=== PATIENT | female | born 1950 | race Caucasian/White ===

== ENCOUNTER 2023-02-05 13:47 | Outpatient (REF) | payer MEDICARE, SELFPAY ==
--- NOTE | ~2023-02-05 | XR_ITS ---
EXAMINATION: XR LUMBOSACRAL SPINE WITH OBLIQUES CLINICAL INFORMATION: Spondylolisthesis. COMPARISON: None available. TECHNIQUE: 4 views of the lumbar spine of lateral, flexion and extension views. FINDINGS: The bones are diffusely demineralized. Mild dextroscoliosis of the lumbar spine. Degenerative changes in the imaged lower thoracic spine. Facet arthritis in the lower lumbar spine. Extensive atherosclerotic aortoiliac calcifications. A 12 mm anterolisthesis of L4 on L5 persists on flexion and extension views. Multilevel lumbar spondylosis with multilevel loss of disc space height [id number] at L4-L5. Moderate loss of disc space height at L3-L4. XR/XR lumbar spine 4V min IMPRESSION: Advanced multilevel degenerative changes most notable at L4 on L5.
== END 2023-02-05 13:48 | disposition home or self-care (01) ==
LOC: HO.HOSX 13:47
PROVIDERS: PCP Internal Medicine; Visit Provider Physician Assistant
DX: M43.16 Spondylolisthesis, lumbar region (principal)
CPT/HCPCS: 72110

== ENCOUNTER 2023-02-05 13:47 | Outpatient (AMB) | payer MEDICARE, SELFPAY ==
--- NOTE | 2023-02-05 14:00 | HO.SPINEOV ---
Intake Intake Visit Reasons: low back pain/second opinion Intake Note: Ms. Moralez is here today c/o low pain and for a 2nd opin. MRI done @ [facility]/brought disc. Pill Maker Required: No Assessment & Plan Assessment & Plan (1) Spondylolisthesis, lumbar region: Code(s): M43.16 - Spondylolisthesis, lumbar region Plan Dear Dr Pichardo, Thank you for referring Mrs Moralez to our office today. This is a 72-year-old female who is status post lumbar decompression twice at the L4-5 level, the 1st time in 2015 and then subsequently in 2019. The last surgery was done by Dr. Basurto at [facility]. She describes feeling okay with on and off back pain and radicular symptoms down her left leg for a few years afterwards but sometime after an SI joint injection in October she had a significant escalation of the pain. Specifically low back pain centered around the lumbosacral junction going into both buttocks and then down her left leg into her calf. At times it can be absolutely incapacitating. She tried as mentioned cortisone injections in the past, Tylenol with arthritis, anti-inflammatories, physical therapy etc.. Nothing seems to help and at this point her quality of life is suffering significantly. When she is in a seated position she is completely fine, but when she gets to stand up and start walking she has such severe pain that she will have to sit after just a few minutes. PMH: She has remote history of a heart attack with a stent in 2010, is followed by Cardiology but has been told that the rest of her cardiac vessels are fine. She has no shortness of breath or chest pain at baseline. History of hypertension, rheumatoid arthritis, peripheral neuropathy, osteoarthritis and COPD, hip replacement on the right side and back surgery twice Social hx: Quit smoking 2010 Medications: Aspirin, duloxetine, rosuvastatin, metoprolol, losartan, Enbrel, amoxicillin, arthritis with Tylenol, hypertropia in bromide Allergies: None Physical exam: Strength and reflexes are normal. She does have lot of discomfort when standing out of a chair. Imaging review: Lumbar MRI done at [facility] in 2021 shows worsening degenerative disc disease at L4-5, compared imaging done in 2018 in 2020. She has a severe collapse of the disc at L4-5 with grade 1 spondylolisthesis with ongoing bilateral lateral recess stenosis and bilateral foraminal stenosis. She has significant facet arthropathy, left greater than right. She also has moderate stenosis at L3-4. Impression: 72-year-old female presents to the office today for evaluation of back pain and bilateral buttock pain with radicular pain down the left leg with standing walking. She has had 2 previous lumbar decompressions at L4-5, both of which did give her temporarily relief of her symptoms. She has failed conservative treatment. At this point she is developing a spondylolisthesis, facet arthropathy with persistent foraminal stenosis and bilateral lateral recess stenosis. Standing flexion-extension x-rays show transition to a grade [address] Barry I met with her to discuss L4-5 oblique lumbar interbody fusion. Because of her thin looking bones on the x-ray it would be the best approach to be able to get a bigger cage to support the vertebral bodies and realigned the spondylolisthesis. She will stop her Enbrel 2 weeks prior to surgery. Given the amount of pain she is in, she would like to proceed with surgery. We discussed the fact that she does have moderate stenosis at L3-4 and that this could present an issue down the road but at this time we do not think it symptomatic. Pt was given risk and benefits of surgery including but not limited to infection, hematoma , nerve injury,durotomy, weakness,bowel/bladder injury, persistent pain, hardware failure, possible risk of adjacent segment disease at L3-4, hardware failure as well as the option to continue with conservative treatment and patient wishes to proceed with surgery. Pt is aware they should stop their motrin, aspirin 7 days prior to surgery. All questions were answered to the best of our ability. If there is anything about this patients medical history that we have overlooked or concerns you have about us proceeding with surgery we would appreciate any input you can offer. She will get a note from her bilingual student tutor for clearance. Thank you for allowing us to care for your patient. The total time spent with this visit with this patient was 60 minutes reviewing history, physical exam, lumbar imaging review, and implementation of treatment plan or further diagnostic testing Serafin Barry MD,PhD [facility] Orders: Orders XR lumbar spine 4V min Today M43.16 - Spondylolisthesis, lumbar region Coding Level of Care Code New Pt Level 5 (25895) Diagnoses Spondylolisthesis, lumbar region M43.16
== END 2023-02-05 15:01 | disposition home or self-care (01) ==
PROVIDERS: PCP Internal Medicine; Referring Provider Physical Medicine & Rehabilitation; Visit Provider Physician Assistant
DX: M43.16 Spondylolisthesis, lumbar region (principal)
CPT/HCPCS: 99205

== ENCOUNTER → 2023-04-08 06:04 | Outpatient (BNV) | payer MEDICARE, SELFPAY | PROVIDERS: PCP Internal Medicine; Visit Provider Neurological Surgery | DX: Z48.89 Encounter for other specified surgical aftercare (principal) | CPT/HCPCS: 20930; 22558; 22612; 22840; 22853; 99024; 99499 ==

== ENCOUNTER 2023-04-08 11:34 | Inpatient (IN) | payer MEDICARE, SELFPAY ==
[2023-03-21 12:23] VITALS: BP 155/64; PULSE 70; RESP 18; O2SAT 93; BMI 30.5
--- NOTE | 2023-03-21 12:41 | HO.ANESPROP2 ---
Documented by User: Екатерина Huff NP 04/02/23 14:20 HPI - Anesthesia Eval Consult details Narrative: 72yo F for L4-5 OLIF (Oblique Lumbar Interbody Fusion), 04/08/23 Cardiac optimized No recent illness No CP. JACKSON at baseline d/t COPD CAD with MD / stent 2010 COPD. Follows pulmo for COPD. Rare productive cough for ~ 1 year. Attempted treatment by pulmo for allergy without relief. ? r/t to COVID vaccine RA. Weekly enbrel. Will hold one dose preop Facial skin sensitive to tape PMFSH Active Problems Active Problems: All Active Problems (Updated 03/21/23 @ 12:06 by Keri Alcantara, RN) Spondylolisthesis, lumbar region (Acute) Past Medical History Medical History (Updated 03/21/23 @ 12:06 by Keri Alcantara, RN) Cough Hyperlipidemia Lumbar spondylosis Back pain Overweight Emphysema of lung CAD (coronary artery disease) COPD (chronic obstructive pulmonary disease) Osteoarthritis Peripheral neuropathy Rheumatoid arthritis HTN (hypertension) Myocardial infarction Family History Family history of problems with anesthesia: No Surgical History Surgical History (Updated 03/21/23 @ 12:18 by Keri Alcantara, RN) Hx of heart artery stent History of back surgery History of right hip replacement History of Problems with Anesthesia: No (Slow to wake) Social History Social History Are you a primary geriatric care manager to a significant other at home: No Do you presently have visiting nurse or other home services: No Patient Tobacco Use Status: Former Tobacco user Quit Date: 2010 Meds Allergies Allergy/AdvReac Type Severity Reaction Status Date / Time No Known Allergies Allergy Verified 03/21/23 12:11 Home Medications Medication Instructions Recorded Confirmed Last Taken Type acetaminophen 325 mg tablet 650 mg PO BID 03/21/23 03/21/23 Unknown History aspirin 81 mg tablet,delayed 81 mg PO DAILY 03/21/23 03/21/23 Unknown History release docusate sodium 100 mg capsule 100 mg PO DAILY 03/21/23 03/21/23 Unknown History (Colace) duloxetine 20 mg capsule,delayed 20 mg PO BID 03/21/23 03/21/23 Unknown History release etanercept 50 mg/mL (1 mL) 50 mg subcut QWEEK 03/21/23 03/21/23 Unknown History subcutaneous syringe (Enbrel) losartan 50 mg-hydrochlorothiazide 1 tab PO DAILY 03/21/23 03/21/23 Unknown History 12.5 mg tablet metoprolol succinate 50 mg 50 mg PO DAILY 03/21/23 03/21/23 Unknown History tablet,extended release 24 hr rosuvastatin 20 mg tablet 20 mg PO BEDTIME 03/21/23 03/21/23 Unknown History Exam Exam Date and Time: March 21, 2023 1241 Height,Weight and Vital Signs: Height 5 ft 2 in Weight 75.75 kg Last Vital Signs Pulse 70 03/21/23 12:23 Resp 18 03/21/23 12:23 BP 155/64 H 03/21/23 12:23 Pulse Ox 93 03/21/23 12:23 O2 Del Method Room Air 03/21/23 12:23 Pertinent Lab Results Pertinent Lab Results: CMP 01/2023 from outside facility all WNL Lab Results 03/25/23 03/25/23 Range/Units 13:20 13:21 WBC 7.2 (4.8-10.8) X10*3/uL RBC 4.08 L (4.20-5.50) X10*6/uL Hgb 13.0 (12.0-16.0) g/dl Hct 38.5 (37.0-47.0) % MCV 94.4 (80.0-98.0) fL MCH 31.9 (27.0-33.0) pg MCHC 33.8 (31.0-35.0) g/dl RDW 12.5 (11.0-16.0) % Plt Count 280 (160-400) X10*3/uL MPV 8.1 L (9.4-12.3) fL Absolute Nucleated RBC 0.000 (0.0-0.012) X10*3/uL Nucleated RBC % (auto) 0.0 (0.0-0.2) /100WBC Blood Type O Positive Antibody Screen NEGATIVE Narrative Narrative: EKG 02/2023 NSR @ 70 ECHO 2017 SR with extra systolic beats LV size is nml LV wall thickness is nml Overall LV systolic function is nml with EF 65-70% Diastolic filling pattern is nml No significant change from 2012 Airway TM Dist: >3cm Neck ROM: Limited (some spinal stenosis) Partial: Upper Loose/Missing/Broken Teeth: No (wire behind bottom front) Heart: RRR Lungs: CTAB Assessment and Plan Assessment Anesthesia Assessment: Anesthesia Plan Discussed and PAT Visit Final Anesthetic Review Family History of Problems with Anesthesia: No History of Problems with Anesthesia: No (Slow to wake) Documented by User: Jesus Joy MD 04/08/23 05:36 [facility] Past Medical History Medical History (Updated 03/21/23 @ 12:06 by Keri Alcantara RN) Cough Hyperlipidemia Lumbar spondylosis Back pain Overweight Emphysema of lung CAD (coronary artery disease) COPD (chronic obstructive pulmonary disease) Osteoarthritis Peripheral neuropathy Rheumatoid arthritis HTN (hypertension) Myocardial infarction Surgical History Surgical History (Updated 03/21/23 @ 12:18 by Keri Alcantara RN) Hx of heart artery stent History of back surgery History of right hip replacement Social History Social History Are you a primary geriatric care manager to a significant other at home: No Do you presently have visiting nurse or other home services: No Patient Tobacco Use Status: Former Tobacco user Quit Date: 2010 Meds Allergies Allergy/AdvReac Type Severity Reaction Status Date / Time No Known Allergies Allergy Verified 03/21/23 12:11 Home Medications Medication Instructions Recorded Confirmed Last Taken Type acetaminophen 325 mg tablet 650 mg PO BID 03/21/23 03/21/23 Unknown History aspirin 81 mg tablet,delayed 81 mg PO DAILY 03/21/23 03/21/23 Unknown History release docusate sodium 100 mg capsule 100 mg PO DAILY 03/21/23 03/21/23 Unknown History (Colace) duloxetine 20 mg capsule,delayed 20 mg PO BID 03/21/23 03/21/23 Unknown History release etanercept 50 mg/mL (1 mL) 50 mg subcut QWEEK 03/21/23 03/21/23 Unknown History subcutaneous syringe (Enbrel) losartan 50 mg-hydrochlorothiazide 1 tab PO DAILY 03/21/23 03/21/23 Unknown History 12.5 mg tablet metoprolol succinate 50 mg 50 mg PO DAILY 03/21/23 03/21/23 Unknown History tablet,extended release 24 hr rosuvastatin 20 mg tablet 20 mg PO BEDTIME 03/21/23 03/21/23 Unknown History Exam Airway Mallampati Class: III Assessment and Plan Final Anesthetic Review NPO: Yes ASA Class: III Final Preanesthetic Review: No Changes in Pt Med Stat, Meds/Allgs Chart Reviewed, Consent Obtained/Reviewed and Anes Risks/Benef Reviewed Patient Risk: Intermediate Procedure Risk: Intermediate Anesthetic Plan Anesthetic Plan: GA Disposition: Standard PACU
[2023-03-25 13:50] LABS: Hematocrit 38.5 % (37.0-47.0); Mean Corpuscular HGB Conc 33.8 g/dl (31.0-35.0); Mean Corpuscular Hemoglobin 31.9 pg (27.0-33.0); Mean Corpuscular Volume 94.4 fL (80.0-98.0); Mean Platelet Volume 8.1 fL (9.4-12.3); Platelet Count 280 X10*3/uL (160-400); Red Blood Count 4.08 X10*6/uL (4.20-5.50); Red Cell Distribution Width 12.5 % (11.0-16.0); White Blood Count 7.2 X10*3/uL (4.8-10.8)
[2023-04-08] VITALS (21 sets, daily range): BP systolic 122–177; BP diastolic 58–92; PULSE 80–97; RESP 13–20; TEMP 36.1–36.6; O2SAT 91–96; BMI 30.1; BMI 30.2
--- NOTE | ~2023-04-08 | FL_ITS ---
EXAMINATION: XR FLUOROSCOPY WITH IMAGES CLINICAL INFORMATION: L4-L5 OLIF. COMPARISON: None available. TECHNIQUE: Fluoroscopy Supervised By: Dr. Loi Barry. Fluoroscopy Time: 1.2 minutes. Cumulative Dose: 68.98 mGy. DAP: 1.575 Gycm2. Images: 6. FINDINGS: Images demonstrate new posterior fusion with rods and bilateral transpedicular screws at L4-L5 and interbody fusion hardware. FL/FL guidance in OR IMPRESSION: Fluoroscopy guidance for lumbar spine surgery.
[2023-04-08] MEDS: methocarbamoL 750 MG TABLET PO (06:40)
[2023-04-08] MEDS: Gabapentin 300 MG CAPSULE PO (06:41)
[2023-04-08] MEDS: Lactated Ringers 1,000 ML 100 ML IVCONT (06:42)
--- NOTE | 2023-04-08 07:12 | MHC.SHP ---
Pre-Procedural Eval Section A Date of Service: 04/08/23 The patient is an INPATIENT: No Changes since office visit: No Cold of Flu in the past 2 weeks, No New Medical Problems, No Changes in Medication and No Patient answered all questions The History & Physical has been completed within 30 days and I have reviewed it.: No Section B Chief Complaint: Spondylolisthesis, lumbar region Allergies: Allergies Allergy/AdvReac Type Severity Reaction Status Date / Time No Known Allergies Allergy Verified 03/21/23 12:11 Review of Systems Sugical H&P ROS: Negative: Constitution, Cardiovascular, Respiratory, Neurological, Psychiatric, Hem-Onc, Allergic/Immunologic, Gastrointestinal, Genitourinary, Musculoskeletal, Integumentary, Endocrine and Eyes/Ears/Nose/Throat Exam Surgical H&P Exam: Not Evaluated: HEENT, Not Evaluated: Heart, Not Evaluated: Lungs, Not Evaluated: Extremities, Not Evaluated: Abdomen, Not Evaluated: Skin and Not Evaluated: Neurological Plan Diagnosis/Plan: Unchanged I have reviewed the history and physical and performed a pertinent physical examination on my patient. No changes have occurred unless specified. L4-5 OLIF Time Spent With Patient Time: Total time managing care of this patient today __12.5__ minutes.
[2023-04-08] MEDS: fentaNYL citrate/PF 100 MCG/2 ML VIAL 25 MCG IVPUSH ×2 (10:39→10:57)
--- NOTE | 2023-04-08 10:55 | W.PM.OPN ---
Operative Note Operative Note Date of Service: 04/08/23 Narrative: Preop Diagnosis: 1.) L4-5 lumbar spondylolisthesis; neurogenic claudication 2.) same Procedure: L4-5 discectomy, arthrodesis and implantation cage through an anterolateral, retroperitoneal approach; posterior instrumented fusion L4-5; allograft Consent Informed Consent was obtained for this operation. I have explained the nature, purpose and benefits of the operation. I have discussed the risks and benefit of the operation including possible complications or adverse events with patient/family. Alternative(s) were discussed with the patient with their relative benefits and risks as well as the consequences of not accepting the operation were included in obtaining consent. Surgeon: KHANG ESPINOZA MD, PHD Procedure Assisted By: guillermo Fisher Description of Procedure this patient had a previous lumbar decompression done at another institution. She presented back pain and bilateral leg pain with imaging showing an unstable L4-5 spondylolisthesis and associated spinal stenosis. The patient was offered an oblique lumbar interbody fusion L4-5. The procedure complications were explained. The patient was consented. The patient was brought to the operating room and endotracheally intubated. The patient was turned in a lateral position with the left side up. Prep and drape was done followed by timeout. A small incision was made in the left lower abdominal quadrant. The muscle fascia was opened after which the 3 muscle layer was split to enter the retroperitoneal space. Dilators were docked in the anterior one third of the L4-5 disc space followed by a retractor. The retractor was opened. The L4-5 disc space was exposed. An annulotomy was done after which an elevator Flores was used to release the disc material from its endplates and to perforate the contralateral side. A partial discectomy was done. An 8 mm height trial implant was inserted. The discectomy was completed. The endplates were prepared. An 8 x 45mm with 0 degree lordosis 4 web cage filled with allograft was inserted into the disc space under fluoroscopic guidance. This resulted in a correction of the lumbar spondylolisthesis. The retractor was removed. Hemostasis was done. The incision was closed in 2 layers. Steri-Strips used to approximate incision. An OpSite with Tegaderm was used to cover the incision. This marked first part of the procedure. The patient was turned prone on the Olivier spine table. 2C arms were installed for fluoroscopy. Prep and drape was done followed by a second timeout. 2 paramedian incisions were made lateral from the L4-L5 pedicles. The muscle fascia was opened after which the muscle layer was split bluntly to expose the posterolateral gutter. The following steps were taken. A pediguard tap was used to create a transpedicular trajectory into the vertebral body. A K wire was placed. A specially designed instrument was advanced over the K wire to decorticate the posterolateral gutter in preparation for the posterolateral fusion. A pedicle screw was advanced over the K wire and the K wire was removed. The steps were done for the bilateral L4 and L5 pedicles. A total of 4 screws were placed with a diameter of 6.5 x 45 mm. Pedicle screws were connected with 45 mm oz bilaterally and locked down with locking caps. The extension towers were removed. The posterolateral gutter was filled with allograft to complete the posterolateral [] fusion Hemostasis was done and the incision was closed in 2 layers. Steri-Strips were used to approximate the incision. An OpSite were taken and was used to cover the incision. All sponge and needle counts were correct. Patient was extubated and transferred in stable is to recovery room. Anesthesia: General Estimated Blood Loss (ml): 20 mL Duration of Surgery: 1 hour 10 minute Complications: None Postoperative Plan: Admit to inpatient for observation
[2023-04-08] MEDS: oxyCODONE HCl Immed Release 5 MG TABLET PO (10:56)
[2023-04-08] MEDS: oxyCODONE HCl Immed Release 5 MG TABLET 10 MG PO ×2 (13:12→18:04)
[2023-04-08] MEDS: Ketorolac Tromethamine 15 MG/ML VIAL IVPUSH ×2 (13:13→18:04)
[2023-04-08] MEDS: ceFAZolin Sodium/Dextrose,Iso 2 GM/50 ML PIGGYBACK IV ×2 (13:13→21:18)
[2023-04-08] MEDS: 0.9 % Sodium Chloride 1,000 ML 75 ML IVCONT (13:13)
[2023-04-08] MEDS: Acetaminophen 1,000 MG/100 ML PIGGYBACK 400 MG IV ×2 (14:43→22:22)
--- NOTE | 2023-04-08 14:52 | PHA.MEDREC ---
Pharmacy Consult ? Medication Reconciliation Pharmacy has REVIEWED the medication reconciliation completed by nursing
[2023-04-08] MEDS: DULoxetine HCl 20 MG CAPSULE.DR PO (21:15)
[2023-04-09] MEDS: Ketorolac Tromethamine 15 MG/ML VIAL IVPUSH ×2 (01:31→08:18)
[2023-04-09] MEDS: ceFAZolin Sodium/Dextrose,Iso 2 GM/50 ML PIGGYBACK IV (01:32)
[2023-04-09] MEDS: Acetaminophen 1,000 MG/100 ML PIGGYBACK 400 MG IV ×2 (03:02→08:19)
[2023-04-09 04:00] VITALS: BP 132/60; PULSE 84; RESP 16; TEMP 36.7; O2SAT 96
[2023-04-09] MEDS: 0.9 % Sodium Chloride 1,000 ML 75 ML IVCONT (04:48)
--- NOTE | 2023-04-09 07:39 | P.DS_ITS ---
DS: Providers Provider Date of Service: 04/09/23 Date of admission: 04/08/23 11:34 Primary care physician: Hedy Vital MD DS: Summary Time Attestation Discharge coordination time: Less than 30 minutes Quality: Safe Use of Opioids Does Pt have an Active Cancer Diagnosis on the Problem List?: No Quality: Stroke Does the patient have a stroke diagnosis?: No Physical Exam Vital Signs: Vital Signs: Last Vital Signs Temp 98.0 F 04/09/23 04:00 Pulse 84 04/09/23 04:00 Resp 16 04/09/23 04:00 BP 132/60 04/09/23 04:00 Pulse Ox 96 04/09/23 04:00 O2 Del Method Nasal Cannula 04/09/23 04:00 O2 Flow Rate 3 04/09/23 04:00 BMI result Body Mass Index 30.2 Discharge Plan Discharge Anticipated Discharge Date/Time: 04/09/23 07:41 Patient Disposition: Home, Self-Care Discharge Diagnosis: S/P L4-5 OLIF Referrals: Hedy Vital MD [Primary Care Provider] - 1 Week Discharge Medications: New oxycodone 5 mg tablet 5 mg PO Q6H PRN (Reason: severe pain (scale score 7-10)) Qty: 30 0RF Rx Instructions: Partial Fill upon patient request. Continued acetaminophen 325 mg Tablet 650 mg PO BID metoprolol succinate 50 mg tablet extended release 24 hr 50 mg PO DAILY losartan-hydrochlorothiazide 50-12.5 mg tablet 1 tab PO DAILY rosuvastatin 20 mg tablet 20 mg PO BEDTIME duloxetine 20 mg capsule,delayed release(DR/EC) 20 mg PO BID aspirin 81 mg Tablet,Delayed Release (Dr/Ec) 81 mg PO DAILY docusate sodium [Colace] 100 mg Capsule 100 mg PO DAILY Held Enbrel 50 mg/mL (1 mL) Syringe 50 mg SUBCUT QWEEK Hold Instructions: Resume on 05/09/23. Hold until we can evaluate at first p ost op appt. Rx Instructions: every Saturday Discharge Orders: Discharge Order (Routine); Ordered 04/09/23 Ordered By: Akhil Brooks Diet: Advance to usual diet Activity on Discharge: As tolerated Stand Alone Forms: Patient Portal Discharge page Care Plan Goals: Return to normal activity as tolerated. Health Concerns: None. Plan of Treatment: F/U in office in 2-3 weeks. Assessment: POD: 1 Procedure: L4-5 OLIF Patient reports she is up walking around is otherwise doing well. She feels her symptoms are much better than pre-operatively. She still reports mild pain in her low back, with good relief with pain medication. She is voiding well, tolerating diet. Afebrile, vital signs stable. No neurological symptoms. Full strength in lower extremities. Back dressings have some staining without signs of hematoma. Dressing was changed, steri-strips remain in place. No active sanguineous drainage. Area is dry. Plan: Patient meets criteria to be medically discharged home. She was seen at bedside with Dr. Barry.
--- NOTE | 2023-04-09 07:50 | HO.NEURO.PN ---
Neurosurgery Operative Note Date of Service: 04/09/23 Narrative: POD: 1 Procedure: L4-5 OLIF Patient reports she is up walking around is otherwise doing well. She feels her symptoms are much better than pre-operatively. She still reports mild pain in her low back, with good relief with pain medication. She is voiding well, tolerating diet. Afebrile, vital signs stable. No neurological symptoms. Full strength in lower extremities. Back dressings have some staining without signs of hematoma. Dressing was changed, steri-strips remain in place. No active sanguineous drainage. Area is dry. Plan: Patient meets criteria to be medically discharged home. She was seen at bedside with Dr. Barry.
[2023-04-09 07:52] VITALS: BP 147/68; PULSE 91; RESP 18; TEMP 36.7; O2SAT 93
[2023-04-09 07:54] VITALS: BP 147/68; PULSE 91; O2SAT 93
[2023-04-09] MEDS: oxyCODONE HCl Immed Release 5 MG TABLET PO (08:17)
[2023-04-09] MEDS: DULoxetine HCl 20 MG CAPSULE.DR PO (08:18)
[2023-04-09] MEDS: Losartan Potassium 50 MG TABLET PO (08:18)
[2023-04-09] MEDS: Metoprolol Succinate ER 50 MG TAB.ER.24H PO (08:18)
[2023-04-09] MEDS: hydroCHLOROthiazide 12.5 MG TABLET PO (08:18)
[2023-04-09] MEDS: Aspirin Enteric Coated 81 MG TABLET.DR PO (08:18)
[2023-04-09] MEDS: Docusate Sodium 100 MG CAPSULE PO (08:21)
--- NOTE | 2023-04-09 08:30 | MHC.CM.PN ---
IMM DELIVERED. PT LIVES WITH SPOUSE. INDEPENDENT AT BASELINE. +DRIVES - THRIVE ASSESSMENT. HAS HCP AT HOME. PCP DR. NAE PICKETT DP: PT HAS BEEN MEDICALLY CLEARED FOR DC HOME, NO SERVICES. SPOUSE WILL TRANSPORT.
--- NOTE | 2023-04-09 15:57 | HO.POSTANES ---
Post Anesthesia Evaluation Post Anesthesia Evaluation Date of Service: 04/08/23 Vital Signs: Vital Signs Temp Pulse Resp BP Pulse Ox O2 Del Method O2 Flow Rate 04/09/23 07:54 91 147/68 H 93 04/09/23 07:52 98.0 F 91 18 147/68 H 93 Room Air 04/09/23 04:00 98.0 F 84 16 132/60 96 Nasal Cannula 3 Anesthesia: General Endotracheal-GETA Mental Status: Awake Pain Control: Satisfactory Nausea/Vomiting: None Hydration: Adequate Anesthesia-Related Issues: No Anes. Related Issues
== END 2023-04-09 10:56 | disposition home or self-care (01) | DRG 460 ==
LOC: HO.S3 11:35
PROVIDERS: Nurse Practitioner; Admitting Provider Physician Assistant; PCP Internal Medicine; Visit Provider Neurological Surgery
PROC: 0SG00A0 Fusion of Lumbar Vertebral Joint with Interbody Fusion Device, Anterior Approach, Anterior Column, Open Approach (ICD-10-PCS; principal; 2023-04-08 07:30)
DX: M43.16 Spondylolisthesis, lumbar region (principal); I25.10 Atherosclerotic heart disease of native coronary artery without angina pectoris; J44.9 Chronic obstructive pulmonary disease, unspecified; E78.5 Hyperlipidemia, unspecified; Z87.891 Personal history of nicotine dependence; Z79.82 Long term (current) use of aspirin; Z79.899 Other long term (current) drug therapy
CPT/HCPCS: 36415; 85027; 86850; 86900; 86901; 97162; C1713; J0131; J0690; J1100; J1885; J2371; J2405; J2704; J3010; L8699

== ENCOUNTER 2023-04-30 13:03 | Outpatient (AMB) | payer MEDICARE, SELFPAY ==
--- NOTE | 2023-04-30 13:23 | A.SPINEOV_ITS ---
Intake Intake Visit Reasons: 1st post op Intake Note: Mrs. Moralez is here today for her 1st post-op visit. 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 She reports she is satisfied with the surgery and feels better than she did pre-operatively, however she continues to have rheumatoid arthritis flare ups. She inquired about restarting her DMARD medication, and I advised her to remain off of this medication until after her 2nd postoperative visit as her superficial incision sites are still healing and I am sure she still has quite a bit of healing that is happening at the muscular, fascial, and dermal layers. She does report being able to accomplish her ADLs. She asked for her 1st refill on pain medication, and requested hydrocodone instead of oxycodone as she feels it is not as strong. No neurological deficits. Sensation grossly intact. Patient is able to ambulate well, rises from a seated position without difficulty. Incision sites are closed, well healing, with no signs of drainage. We will follow-up with the patient in 6 weeks for her 2nd postoperative visit. At that time we will get x-rays to review with the patient. Akhil Barry MD,PhD [facility] Medications: New hydrocodone-acetaminophen 5-300 mg Partial Fill upon patient request. 1 tab PO Q8H PRN 20 tabs 0RF severe pain (scale score 7-10) Discontinued oxycodone Partial Fill upon patient request. Discontinued Reason: Doctor's Order 5 mg PO Q6H PRN 30 tabs 0RF severe pain (scale score 7-10) Coding Level of Care Code Global (71446) Diagnoses Spondylolisthesis, lumbar region M43.16
== END 2023-04-30 13:45 | disposition home or self-care (01) ==
PROVIDERS: PCP Internal Medicine; Visit Provider Physician Assistant
DX: M43.16 Spondylolisthesis, lumbar region (principal)
CPT/HCPCS: 99024

== ENCOUNTER → 2023-04-30 13:03 | Outpatient (BNVA) | payer MEDICARE, SELFPAY | PROVIDERS: PCP Internal Medicine; Visit Provider Physician Assistant | DX: Z47.89 Encounter for other orthopedic aftercare (principal); M43.16 Spondylolisthesis, lumbar region; Z79.891 Long term (current) use of opiate analgesic | CPT/HCPCS: 99212 ==

== ENCOUNTER 2023-06-10 15:50 | Outpatient (REF) | payer MEDICARE, SELFPAY | END 2023-06-10 15:51 | disposition home or self-care (01) | LOC: HO.HOSX 15:50 | PROVIDERS: Visit Provider Physician Assistant | DX: Z13.89 Encounter for screening for other disorder (principal) ==

== ENCOUNTER 2023-06-11 12:37 | Outpatient (AMB) | payer MEDICARE, SELFPAY ==
--- NOTE | 2023-06-11 12:59 | HO.SPINEOV ---
Intake Intake Visit Reasons: 2nd post op with xrays Intake Note: Mrs. Moralez is here today for her 2nd post-op visit. Leak Gang Supervisor Required: No Allergies No Known Allergies Allergy (Verified 03/21/23 12:11) Assessment & Plan Assessment & Plan (1) Spondylolisthesis, lumbar region: Code(s): M43.16 - Spondylolisthesis, lumbar region Plan Procedure: L4-5 OLIF Meagan comes in today for her 2nd postoperative visit. She reports that she has been ambulating much better since her surgery with minimal pain in her left buttocks. She has continued relief as the days go by. She reports that she is back to completing the majority of her ADLs. She inquired about utilizing a stationary bicycle/elliptical. We discussed postoperative healing guidelines and exercise regimens. She also inquired out bending/lifting/twisting and weight-bearing. All of her questions were answered to the best of my ability. We reviewed her x-rays that she had completed today and compared them to her intraoperative x-rays. Her x-rays from today show stable posterior instrumentation with no changes from intraoperative. No neurological deficits. Patient is able to ambulate well, rises from a seated position without difficulty. Incision sites are closed, well healing, with no signs of drainage. There is no need for continued routine follow-up with Meagan. She may be discharged as a patient. Akhil Barry MD,PhD [facility] Orders: Orders XR lumbar spine 4V min Today M43.16 - Spondylolisthesis, lumbar region Coding Level of Care Code Global (83809) Diagnoses Spondylolisthesis, lumbar region M43.16
== END 2023-06-11 13:14 | disposition home or self-care (01) ==
PROVIDERS: PCP Internal Medicine; Visit Provider Physician Assistant
DX: M43.16 Spondylolisthesis, lumbar region (principal)
CPT/HCPCS: 99024

== ENCOUNTER → 2023-06-11 12:37 | Outpatient (BNVA) | payer MEDICARE, SELFPAY | PROVIDERS: PCP Internal Medicine; Visit Provider Physician Assistant | DX: M43.16 Spondylolisthesis, lumbar region (principal) ==

== ENCOUNTER 2023-06-11 12:38 | Outpatient (REF) | payer MEDICARE, SELFPAY ==
--- NOTE | ~2023-06-11 | XR_ITS ---
EXAMINATION: XR LUMBOSACRAL SPINE WITH OBLIQUES CLINICAL INFORMATION: Lumbar spondylolisthesis. COMPARISON: Lumbar spine radiographs dated 02/05/2023. TECHNIQUE: AP, both oblique, and lateral views of the lumbar spine. Lateral view of the lumbosacral junction. FINDINGS: There is bony demineralization. Vertebral body heights are normal. At L3-L4, there is mild posterior and leftward disc space narrowing. At L4-L5, there has been a prior posterior fusion and discectomy, with intact posterior fixator rods, pedicular screws and disc spacers. No hardware failure or loosening is seen. No acute fracture or spondylolisthesis is seen. There is a small Schmorl's node of the L3 upper endplate. There is multi-level mild to moderate lumbar spondylosis, most pronounced at L3-L4. The posterior elements are intact. There are aortoiliac atherosclerotic calcifications. XR/XR lumbar spine 4V min IMPRESSION: 1. There is well-maintained alignment status-post L4-L5 posterior fusion and discectomies. No hardware failure or loosening is seen. 2. There is mild degenerative disc disease at L3-L4. 3. There is multi-level mild to moderate lumbar spondylosis, most pronounced at L3-L4.
== END 2023-06-11 12:39 | disposition home or self-care (01) ==
LOC: HO.HOSX 12:38
PROVIDERS: Visit Provider Physician Assistant
DX: M43.16 Spondylolisthesis, lumbar region (principal)
CPT/HCPCS: 72110; 99212

== ENCOUNTER 2024-05-08 14:21 | Outpatient (AMB) | payer MEDICARE, SELFPAY ==
--- NOTE | 2024-05-08 14:55 | HO.SPINEOV ---
Intake Visit Reasons: Neck pain Intake Note: Ms. Moralez is here today c/o neck pain. Nailhead Puncher Required: No Allergies No Known Allergies Allergy (Verified 05/08/24 15:03) Assessment & Plan Assessment & Plan (1) Degenerative disc disease, cervical: Code(s): M50.30 - Other cervical disc degeneration, unspecified cervical region Category: Medical Plan Dear colleague, on 05/08/2024 I saw Meagan Moralez with a new complaint of left-sided neck pain. As you know I performed a lumbar fusion for correction of lumbar spondylolisthesis approximately 1 year ago with good results. She states that the symptoms started on March 12 and have not improved. She can not turn her head towards the left height from pain. The pain radiates along the left side to the top of her shoulder. It also gives her headaches. The right side is unaffected. She denies radiation all the way down to her arm. She denies numbness or weakness. On exam, neurological exam is intact. There is restriction of rotation towards the left side. An MRI of the cervical spine of 03/23/2024 shows multilevel cervical degenerative disc disease, right C4 foraminal stenosis, bilateral severe C6 foraminal stenosis and moderate left C7 foraminal stenosis. In addition, there is facet arthropathy In summary, she has predominantly suffering from left-sided neck pain without radiculopathy. The pain is most likely facet related due to the lack of radicular symptoms. I will refer her for a injection to . She will follow up with me depending on the result of the injection. Than 30 minutes in his consult to review imaging and to discuss plan of care. Loi Barry MD, PhD Spine Fellowship Trained Neurosurgeon Director, [facility] Orders: Referrals Physiatry Referral M50.30 - Other cervical disc degeneration, unspecified cervical region Coding Level of Care Code Est Pt Level 3 (33746) Diagnoses Degenerative disc disease, cervical M50.30
== END 2024-05-08 15:45 | disposition home or self-care (01) ==
PROVIDERS: PCP Internal Medicine; Visit Provider Neurological Surgery
DX: M50.30 Other cervical disc degeneration, unspecified cervical region (principal)
CPT/HCPCS: 99213

== ENCOUNTER → 2024-05-08 14:21 | Outpatient (BNVA) | payer MEDICARE, SELFPAY | PROVIDERS: PCP Internal Medicine; Visit Provider Neurological Surgery | DX: M50.30 Other cervical disc degeneration, unspecified cervical region (principal) | CPT/HCPCS: 99212 ==

== ENCOUNTER 2024-10-28 14:25 | Outpatient (AMB) | payer MEDICARE, SELFPAY ==
--- NOTE | 2024-10-28 14:55 | HO.SPINEOV ---
Intake Visit Reasons: neck pain/injections not working Intake Note: Ms. Marshall is here today c/o neck pain, injections did not work. Coroner Forensic Technician Required: No Allergies No Known Allergies Allergy (Verified 05/08/24 15:03) Assessment & Plan Assessment & Plan (1) Degenerative disc disease, cervical: Code(s): M50.30 - Other cervical disc degeneration, unspecified cervical region Category: Medical Plan Dear colleague, On 10/28/2024 I saw for follow-up Meagan Moralez for intractable neck pain. The pain is present 24 hours a day. It interferes with her daily activities. The pain is worse on the left side and radiates down her upper arms. She underwent an epidural steroid injection which gave him mild relief with the upper arms but not for the neck pain. She tries hot and ice packs but nothing helps. The MRI shows severe degenerative disc disease C4-C5 and C5-C6 with uncovertebral joint arthropathy causing severe bilateral C6 foraminal stenosis. I would like to get a CT scan of the cervical spine to see if there is auto fusion of the C4-5 disc segment. I am considering a C4-5 and C5-6 anterior diskectomy and fusion depending on the CT scan results. I spent 25 minutes in his consult. Loi Barry MD, PhD Spine Fellowship Trained Neurosurgeon Director, [facility] Orders: Orders CT cervical spine wo IV con Today M50.30 - Other cervical disc degeneration, unspecified cervical region Coding Level of Care Code Est Pt Level 3 (91958) Diagnoses Degenerative disc disease, cervical M50.30
--- OUTSIDE RECORDS SUMMARY | 2024-10-28 16:31 | XMS_ITS | Clinical Summary ---
Author Organization [facility] Address [address] [place] [address] Care Team Providers Care Measurement Department Chief Clerk Name Role Phone Hedy Vital MD Primary Care Provide r Social History Tobacco Use Types Packs/Day Years Used Date Smoking Tobacco: Never Assessed Sex and Gender Information Value Date Recorded Sex Assigned at Not on file Gender Identity Not on file Sexual Orientation Not on file Plan of Treatment Health Maintenance Due Date Last Done Comments Hepatitis C Screening 1950 COVID-19 Vaccine (#1) 03/02/1952 Depression Screening 1963 Preventative Health Evaluation 08/31/1969 DTap / Tdap / Td (1 - Tdap) 08/31/1970 Colon Cancer Screening (Colonoscopy) 08/31/1996 Breast Cancer Screening (Mammogram) 08/31/2001 Shingrix-Zoster Vaccine (1 of 2) 08/31/2001 Fall Risk Assessment 08/31/2016 Osteoporosis Screening (DEXA Scan) 08/31/2016 Pneumococcal Vaccine (1 of 1 - PCV) 08/31/2016 Influenza Vaccine (Season Ended) 2025 RSV Adult > 60+ Yrs or Pregn ant (1 - 1-dose 75+ series) 08/31/2026 Hepatitis B Vaccines Aged Out No long er eligible based on patient's age to complete this topic RSV Ped < 20 months Aged Out No longe r eligible based on patient's age to complete this topic Care Teams Measurement Department Chief Clerk Relationship Specialty Start Date End Date Hedy Vital MD PCP - General Internal Medicine 01/13/20
== END 2024-10-28 15:21 | disposition home or self-care (01) ==
LOC: HO.HNS 14:25
PROVIDERS: PCP Internal Medicine; Visit Provider Neurological Surgery
DX: M50.30 Other cervical disc degeneration, unspecified cervical region (principal)
CPT/HCPCS: 99213

== ENCOUNTER → 2024-10-28 14:25 | Outpatient (BNVA) | payer MEDICARE, SELFPAY | PROVIDERS: PCP Internal Medicine; Visit Provider Neurological Surgery | DX: M50.30 Other cervical disc degeneration, unspecified cervical region (principal) | CPT/HCPCS: 99212 ==

== ENCOUNTER 2024-11-07 10:10 | Outpatient (REF) | payer MEDICARE, SELFPAY ==
--- NOTE | ~2024-11-07 | CT_ITS ---
CLINICAL HISTORY: M50.30 - Other cervical disc degeneration, unspecified cervical region CT cervical spine without contrast Comparison: None provided Findings: Cervical spine straightening. No acute fracture. Grade 1 listhesis at a few levels. Multilevel degenerative cervical spine changes partially composed of severe C4/C5 disc narrowing as well as predominantly upper/mid cervical spine facet osteoarthritis. The left C4/C5 facet joint is fused. Unremarkable prevertebral soft tissues. Left maxillary sinus polyp/retention cyst. Biapical smoking-related lung changes. IMPRESSION: Cervical spine degenerative changes This document has been electronically signed by: Fabi Stubbs MD on 11/09/2024 13:13:20
--- OUTSIDE RECORDS SUMMARY | 2024-11-07 10:12 | XMS_ITS | Clinical Summary ---
Author Organization [facility] Address [address] [place] [address] Care Team Providers Care Card Puncher Name Role Phone Hedy Vital MD Primary [...] age to complete this topic Care Teams Card Puncher Relationship Specialty Start Date End Date Hedy Vital MD PCP - General Internal Medicine 01/13/20
== END 2024-11-07 10:11 | disposition home or self-care (01) ==
LOC: HO.CT 10:10
PROVIDERS: Visit Provider Neurological Surgery
DX: M50.30 Other cervical disc degeneration, unspecified cervical region (principal)
CPT/HCPCS: 72125

== ENCOUNTER 2024-12-09 13:17 | Outpatient (AMB) | payer MEDICARE, SELFPAY ==
--- NOTE | 2024-12-09 13:36 | HO.SPINEOV ---
Intake Visit Reasons: f/up after CT/? surgery Intake Note: Mr. Marshall is here today for a F/u after CT and Discuss Surgery. Hardwood Floor Refinisher Required: No Allergies No Known Allergies Allergy (Verified 05/08/24 15:03) Assessment & Plan Assessment & Plan (1) Degenerative disc disease, cervical: Code(s): M50.30 - Other cervical disc degeneration, unspecified cervical region Category: Medical Plan Dear colleague, On December 09, 2024, I saw for follow-up Meagan Moralez. She suffering from intractable neck pain, mostly located on the left side. Pain radiates down both shoulders and to the left upper arm. An MRI shows severe degenerative disc disease C4-5 and C5-6. I obtained a CT scan of the cervical spine to assess auto fusion on 1 of the levels. The C4-5 level is auto fused and therefore does not require surgery. The C5-6 level however is not fused and has large bilateral osteophytes compressing the bilateral C6 nerve roots. I offered her an anterior diskectomy and fusion C5-C6 for 12/29/2024. She is scheduled to have a physical on 12/14/2024. She takes Enbrel which she will discontinued 2 weeks prior to surgery. She also needs to discontinue her aspirin 1 week prior to surgery I spent 20 minutes in his consult reviewing imaging and discussing plan of care. Loi Barry MD, PhD Spine Fellowship Trained Neurosurgeon Director, [facility] [place] [facility] Coding Level of Care Code Est Pt Level 3 (76438) Diagnoses Degenerative disc disease, cervical M50.30
--- OUTSIDE RECORDS SUMMARY | 2024-12-09 13:46 | XMS_ITS | Clinical Summary ---
Author Organization [facility] Address [address] [place] [id number] Phone Care Team Providers Care Director Of Services Name Role Phone Tyler Tesfaye MD Unavailable Hedy Vital MD Primary Care Provide r Allergies No known active allergies Medications aspirin 81 MG EC tablet Take 81 mg by mouth daily. Active ETANERCEPT (ENBREL SUBQ) Inject under the skin every 7 days. Active DULoxetine (CYMBALTA) 20 MG capsule 20 mg 2 (two) times a day. 09/30/19 22 Active losartan-hydroCHLOROthia zide (HYZAAR) 50-12.5 mg per tabletIndications:Medica tion refill Take 1 tablet by mouth daily. 90 tablet 3 05/27/19 25 Active metoprolol succinate (TOPROL-XL) 50 MG 24 hr tabletIndications:Essent ial hypertension,Atheroscler osis of [place] coronary artery of [place] heart without angina pectoris,Pure hypercholesterolemia Take 1 tablet (50 mg total) by mouth daily. 90 tablet 3 05/27/19 25 Active rosuvastatin (CRESTOR) 20 MG tablet Take 1 tablet (20 mg total) by mouth daily. 90 tablet 3 09/16/19 25 Active Active Problems Problem Noted Date Diagnosed Date Atherosclerosis of [place] co ronary artery of [place] heart without angina pectoris 04/24/2017 Assessment & Plan (05/27/2024 12:02 PM EST): She is asymptomatic from a cardiovascular standpoint. She is encouraged follow heart healthy diet including low-sodium and exercise. We will continue to optimize her cardiac risk factors. She is on aspirin 81 mg daily we will remain on this lifelong, rosuvastatin 20 mg daily, metoprolol 50 mg daily and losartan- hydrochlorothiazide 50-12.5 mg tablet daily. She has not been taking her losartan and hydrochlorothiazide due to moving from [place] and did not bring enough medication with her. I did send this to the pharmacy for her to refill and she should start taking this as soon as possible given her blood pressure is quite elevated here in the office today. SBP goal less than 130/80. LDL goal less than 55 mg/dL. Assessment & Plan (03/18/2023 2:16 PM EDT): History for coronary artery disease with stenting of her circumflex in 2011. She is asymptomatic from a cardiovascular standpoint. She is on aspirin 81 mg daily, metoprolol 50 mg daily, rosuvastatin 20 mg daily, losartan-hydrochlorothiazide 50-12.5 mg daily. She does check her blood pressures at home and tells me that her blood pressures are better controlled there than they are here. She will continue to follow her healthy diet including low sodium and to continue being as active as she can due to her lower back she is limited with exercise. Assessment & Plan (04/24/2017 12:07 PM EST): She is a history of coronary artery disease with stenting of her circumflex in 2011. She is done well since then. She should remain on aspirin lifelong we will continue to optimize her other cardiac risk factors. Essential hypertension 04/24/2017 Assessment & Plan (05/27/2024 12:02 PM EST): Blood pressure is elevated today however she has been missing her losartan-hydrochlorothiazide due to moving from [place] not taking enough with her. I did send this to the pharmacy for her to refill to take as soon as possible. SBP goal less than 130/80. Blood pressure today is quite elevated at 166/80. Assessment & Plan (03/18/2023 2:16 PM EDT): Her blood pressure is quite elevated today 150/76. She tells me her blood pressures at home typically run 120-12.5 mg daily, Toprol 50 mg daily. She will continue his medication without change.-130 systolic. She is on losartan-hydrochlorothiazide 50- Assessment & Plan (04/24/2017 12:08 PM EST): Her blood pressures well controlled on the current meds. Hypercholesterolemia 04/24/2017 Assessment & Plan (05/27/2024 12:03 PM EST): Continue rosuvastatin 20 mg daily. I did put in a lipid panel for her draw. Assessment & Plan (03/18/2023 2:16 PM EDT): She brings in a lipid panel from dated 01/22/2023 where her cholesterol is 148, triglycerides 119, HDL 53, LDL 71, not LDL 95. She will continue her rosuvastatin 20 mg daily Assessment & Plan (04/24/2017 12:08 PM EST): Continue atorvastatin. Shortness of breath 04/24/2017 Assessment & Plan (05/27/2024 12:03 PM EST): She continues to have chronic shortness of breath. She did have an echocardiogram in [place] and states that this was fine we will try to obtain those records for review. Assessment & Plan (04/24/2017 12:08 PM EST): She complains of worsening shortness of breath. The cause of this is unclear. It may be multifactorial from her lung disease, obesity and her heart. She's not had an echocardiogram in 4 or 5 years. I like to get an echo cardiac event to see if this gives us an idea why she gets her out of breath. She may also be deconditioned and I encouraged her to get regular physical activity. Encounters Date Type Department Care Team Description 09/15/2024 Refill [facility] [address], [address] [place] [address] Cherelle Escalante MA Medication Refill from Last 3 Months Immunizations Immunization Administration Dates Next Due COVID-19 (Pre-03/11) Moderna Vaccine, mRNA, PF 0 08/11/2020,07/14/2020 Family History Medical History Relation Comments Cancer Father 2 Diabetes mellitus Father 2 CV disease Mother 2 Hypertension Mother 2 Relation Status Comments Father 1 Father 2 Mother 1 Mother 2 Social History Tobacco Use Types Packs/Day Years Used Date Smoking Tobacco: Former Smokeless Tobacco: Never Tobacco Cessation:Counseling Given: Not Answered Comments:quit 2010 Alcohol Use Standard Drinks/Week Comments No 0 (1 standard drink = 0.6 oz pur e alcohol) Education Answer Date Recorded Are you interested in more education? Not on fabiola e 09/14/2022 Are you concerned about learning? Not on file 09/14/2022 No 09/14/2022 No 09/14/2022 Digital Access Answer Date Recorded No 10/15/2022 No 10/15/2022 Reliable internet access at home? Not on file 10/15/2022 Device with a working camera? Not on file Comments Unknown Sex and Gender Information Value Date Recorded Sex Assigned at Female 03/20/2021 3:39 PM EDT Legal Sex Female 10:00 PM EDT Gender Identity Female 03/20/2021 3:39 PM EDT Sexual Orientation Not on file Last Filed Vital Signs Vital Sign Reading Time Taken Comments Blood Pressure 166/80 05/27/2024 11:31 AM EST Pulse 75 05/27/2024 11:31 AM EST Temperature - - Respiratory Rate - - Oxygen Saturation 94% 03/18/2023 1:49 PM EDT Inhaled Oxygen Concentration - - Weight 75.8 kg (167 lb) 05/27/2024 11:31 AM EST Height 158.8 cm (5' 2.52 ) 05/27/2024 11:[address] Body Mass Index 30.04 05/27/2024 11:31 AM EST Plan of Treatment Upcoming Encounters Date Type Department Care Team (Late st Contact Info) Description 05/27/2025 11:30 AM EST Office Visit [facility] [address] [place] [address] [address], [address] [place] [address] Rosey Ch, [facility] [address], [address] [place] [address] [email or web address] Health Maintenance Due Date Last Done Comments CREATININE LEVEL 1950 POTASSIUM LEVEL 1950 DEPRESSION SCREENING 1963 SMOKING Hx and SMOKELESS TOBACCO SCREENING 08/31/1964 HEPATITIS C SCREENING 08/31/1969 PNEUMOCOCCAL VACCINES (50+ years) (1 of 2 - PCV) 08/31/1970 ZOSTER VACCINES (1 of 2) 08/31/1970 MAMMOGRAM 1991 COLOGUARD 08/31/1996 COLONOSCOPY 08/31/1996 COLORECTAL CANCER SCREENING 08/31/1996 FIT TEST 08/31/1996 FOBT 08/31/1996 SIGMOIDOSCOPY 08/31/1996 VIRTUAL COLONOSCOPY 08/31/1996 RSV VACCINE (1 - Risk 60-74 years 1-dose series) 2011 OSTEOPOROSIS SCREENING INITIAL (ONE-TIME) 08/31/2016 COVID-19 VACCINE ( season) 2024 01/21/2021, 01/21/2021, 08/11/2020, Additional history exists BLOOD PRESSURE 11/24/2024 05/27/2024 Adult Td,Tdap Booster 02/20/2032 02/19/2022 HEPATITIS A VACCINES Aged Out No long er eligible based on patient's age to complete this topic HIB VACCINES Aged Out No longer eligi ble based on patient's age to complete this topic MENINGOCOCCAL VACCINES (ACWY) Aged Out No longer eligible based on patient's age to complete this topic MENINGOCOCCAL VACCINES (B) Aged Out N o longer eligible based on patient's age to complete this topic Medical Devices Not on file Insurance MEDICARE PART A & B [employer] MEDEX SUPPLEMENT MEDICARE PART A & B [employer] MEDEX SUPPLEMENT MEDICARE PART A & B [employer] MEDEX SUPPLEMENT MEDICARE PART A & B [employer] MEDEX SUPPLEMENT MEDICARE PART A & B Member Subscriber Plan / Payer (Ef fective 2013-Present) Name:Arash Moralez Member ID:[id number] Relation to Subscriber:Self Name:Arash Moralez Subscriber ID:[id number] Payer ID:[id number] Group ID:Not on file Type:Medicare Address: [employer] [address] [employer] CROSS MEDEX SUPPLEMENT MEDICARE PART A & B [employer] MEDEX SUPPLEMENT MEDICARE PART A & B [employer] MEDEX SUPPLEMENT MEDICARE PART A & B [employer] MEDEX SUPPLEMENT MEDICARE PART A & B [employer] CROSS MEDEX SUPPLEMENT Care Teams Director Of Services Relationship Specialty Start Date End Date Hedy Vital MD [address] [place] [id number] PCP - General Internal Medicine 03/25/20 Tyler Tesfaye MD [address], [facility] [address] [place] [address] [email or web address] Historical LMR Provider 03/07/17 Additional Source Comments The information contained in this document represents components of the legal health record. It is not the complete legal health record.[facility]
--- OUTSIDE RECORDS SUMMARY | 2024-12-09 13:46 | XMS_ITS | Clinical Summary ---
Author Organization [facility] Address [address] [place] [address] Care Team Providers Care Commissioned Fire Officer Name Role Phone Hedy Vital MD Primary [...] of 1 - PCV) 08/31/2016 Influenza Vaccine (#1) 2025 RSV Adult > 60+ Yrs or Pregn ant (1 - 1-dose 75+ series) 08/31/2026 Hepatitis B Vaccines Aged Out No long er eligible based on patient's age to complete this topic RSV Ped < 20 months Aged Out No longe r eligible based on patient's age to complete this topic Care Teams Commissioned Fire Officer Relationship Specialty Start Date End Date Hedy Vital MD PCP - General Internal Medicine 01/13/20
== END 2024-12-09 14:03 | disposition home or self-care (01) ==
LOC: HO.HNS 13:18
PROVIDERS: Visit Provider Neurological Surgery
DX: M50.30 Other cervical disc degeneration, unspecified cervical region (principal)
CPT/HCPCS: 99213

== ENCOUNTER → 2024-12-09 13:17 | Outpatient (BNVA) | payer MEDICARE, SELFPAY | PROVIDERS: Visit Provider Neurological Surgery | DX: M50.30 Other cervical disc degeneration, unspecified cervical region (principal) | CPT/HCPCS: 99212 ==

== ENCOUNTER 2025-05-04 14:02 | Outpatient (AMB) | payer MEDICARE, SELFPAY ==
--- NOTE | 2025-05-04 14:02 | A.PHYSOV ---
Vital Signs 05/04/25 14:03 Height 5 ft 2 in Weight 169 lb BMI 30.9 Intake Visit Reasons: neck & shoulder pain Intake Note: Patient is a 74 year old female in office today for neck and shoulder pain. 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 She has had persistent neck pain since at least February 2024, which has been worsening, and is now associated with paresthesias described as needles and pins from her shoulder. A cervical spine MRI revealed diffuse degenerative changes with varying degrees of neuroforaminal narrowing. Past treatments include cervical control injections, which provided some relief, and a cervical epidural injection on January 11, 2025, which offered only brief relief. Neurosurgery at [facility] suggested an anterior discectomy and fusion at C5-C6 on December 09, 2024. However, a previously scheduled surgery was canceled by the anesthesia department due to the patient's low oxygen levels. Her medical history is significant for rheumatoid arthritis, for which she takes Enbrel, and chronic obstructive pulmonary disease (COPD), with oxygen levels reportedly around 80%. She also has a history of a prior back fusion and is now experiencing pain on the other side of her back. Pain Description - Onset and Timing: Persistent since at least February 2024 and has been worsening. - Quality and Character: Associated with paresthesias described as pins and needles. - Primary Location and Areas of Radiation: Neck pain with symptoms radiating from the shoulder. - Exacerbating Factors and Interference with Function: Pain is severe enough to interfere with sleep. - Relieving Factors: Previously had some relief with cervical injections. - Current Analgesia: Reports that hydrocodone 5 mg is no longer effective. Results - Imaging: Cervical spine MRI was consistent with diffuse degenerative changes and various degrees of neuroforaminal narrowing. [facility] Medical History Lumbar radiculitis History of home oxygen therapy Hx of basal cell carcinoma Cough Hyperlipidemia Lumbar spondylosis Back pain Overweight Emphysema of lung CAD (coronary artery disease) COPD (chronic obstructive pulmonary disease) Osteoarthritis Peripheral neuropathy Rheumatoid arthritis HTN (hypertension) Myocardial infarction Surgical History History of back surgery H/O colonoscopy Hx of heart artery stent History of back surgery History of right hip replacement Social History Household Members: Spouse Housing: House Are you a primary care transition manager to a significant other at home: No Do you presently have visiting nurse or other home services: No Comment: all counts correct Patient Tobacco Use Status: Former Tobacco user service: No Review of Systems Narrative Review of Systems - Musculoskeletal: Reports worsening, persistent neck pain and back pain. - Neurological: Reports paresthesias described as pins and needles that come from her shoulder. - Psychiatric: Reports sleep disturbance due to pain. - Respiratory: Reports a history of COPD and low oxygen levels, stating they are probably around 80%. Physical Exam Exam Exam: Physical Exam Patient appears to be in no acute distress. Appropriately conversant oriented. Ambulates without antalgia. Gait was waddling. Lumbar extension and side bending was restricted. Cervical range of motion was restricted in all planes. Spurling maneuver was negative. Lhermitte's sign was negative. Neurological examination was nonfocal. Patient demonstrated no upper motor neuron signs. Vital Signs: BMI result Body Mass Index 30.9 Assessment & Plan Assessment & Plan (1) Degenerative disc disease, cervical: Code(s): M50.30 - Other cervical disc degeneration, unspecified cervical region Category: Medical (2) Lumbar radiculitis: Code(s): M54.16 - Radiculopathy, lumbar region Category: Medical (3) Cervical radiculitis: Code(s): M54.12 - Radiculopathy, cervical region Category: Medical Plan Pain Management - Affect: Reports pain is severe and interferes with sleep. - Analgesia: The patient is currently taking hydrocodone 5/325 mg, one to two tablets daily, but reports it is no longer effective. - Adverse Effects: No adverse effects from hydrocodone were reported. - Activities of Daily Living: Pain impairs her ability to sleep at night. - Aberrant Drug-Related Behaviors: The patient reports taking less medication than prescribed to stretch them out. - She has agreed to a pain management contract, which includes the possibility of urine drug testing and pill counts. Plan Patient was informed and verbally consented to the use of an ambient scribe for clinic note documentation during this visit. 1. Chronic Neck Pain With Cervical Radiculopathy The patient's worsening neck pain with radicular symptoms is inadequately controlled with her current regimen of hydrocodone 5 mg. She is awaiting a C5-C6 anterior cervical discectomy and fusion, but clearance is pending due to her respiratory status. To bridge the period until surgery, her pain medication will be increased to hydrocodone 10 mg, to be taken as needed up to three times daily. Due to the need for chronic opioid therapy, she has consented to and will sign a pain management contract, which may involve urine drug screening and pill counts. Alternative procedures like radiofrequency ablation were discussed, but deemed not appropriate for her radicular symptoms, which are due to a pinched nerve rather than facet joint pain. Follow-up is scheduled in one month to reassess pain control and the status of her surgical plan. 2. Chronic Obstructive Pulmonary Disease With Hypoxemia The patient's history of COPD with significant hypoxemia remains the primary obstacle for surgical intervention. She has a pre-operative evaluation scheduled on May 19, 2025. If surgery is canceled again due to low oxygen levels, she will be referred back to her certified ophthalmic surgical assistant for further evaluation and management, as per her surgeon's office. Discussion Notes I discussed the patient's worsening chronic neck pain, radicular symptoms, and insufficient pain control on her current medication. I explained the risks of opioid tolerance with long-term use, clarifying that my concern is the medication becoming less effective rather than addiction. We agreed to increase her hydrocodone dose to 10 mg as needed to provide better pain relief until her planned surgery. I informed her that because this is an ongoing prescription for a controlled substance, a pain management contract is required, which includes potential urine drug testing and pill counts. The patient understood and consented to this agreement. We also discussed the high likelihood of her surgery being canceled again due to her low oxygen levels and the strict criteria of the anesthesia department. I addressed a question about alternative, minimally invasive procedures like radiofrequency ablation, clarifying that such a treatment is for arthritic joint pain and would not address her symptoms from a pinched nerve. I advised her to follow up in one month to reassess pain control and check on the status of her surgery. Patient Instructions - A new prescription for Hydrocodone 10 mg will be sent to your pharmacy. - Take one tablet by mouth up to three times a day as needed for pain. - Take this medication only as needed; the less you take, the better. - If the 10 mg dose feels too strong, you can cut the tablet in half. - You will need to sign a pain management agreement today for this medication. - Please attend your pre-operative appointment on May 19 for your scheduled neck surgery. - If your surgery is canceled again, you may need to see your lung specialist for further tests. - Schedule a follow-up appointment in our office in one month. Medications: New hydrocodone-acetaminophen 10-325 mg Partial Fill upon patient request. 1 tab PO TID PRN 84 tabs 0RF pain 28 days M50.30 - Other cervical disc degeneration, unspecified cervical region, M54.12 - Radiculopathy, cervical region, M54.16 - Radiculopathy, lumbar region Discontinued hydrocodone-acetaminophen 5-325 mg Discontinued Reason: Doctor's Order 1 tab PO QID 7 days PRN 28 tabs 0RF pain M43.16 - Spondylolisthesis, lumbar region, M54.16 - Radiculopathy, lumbar region Coding Level of Care Code Est Pt Level 4 (37513) Add On Problem Visit Only Diagnoses Degenerative disc disease, cervical M50.30 Lumbar radiculitis M54.16 Cervical radiculitis M54.12
[2025-05-04 14:03] VITALS: BMI 30.9
--- OUTSIDE RECORDS SUMMARY | 2025-05-04 18:16 | XMS_ITS | Clinical Summary ---
Author Organization [facility] Address [address] [place] [id number] Phone Care Team Providers Care Last Pattern Grader Name Role Phone Tyler Tesfaye MD Unavailable [phone] Hedy Vital MD Primary Care Provide r [...] 24 hr tabletIndications:Essent ial hypertension,Atheroscler osis of [place] coronary artery of [place] heart without angina pectoris,Pure hypercholesterolemia Take 1 tablet (50 mg total) by mouth daily. 90 tablet 3 05/27/19 25 Active rosuvastatin (CRESTOR) 20 MG tablet Take 1 tablet (20 mg total) by mouth daily. 90 tablet 3 09/16/19 25 Active Active Problems Problem Noted Date Diagnosed Date Atherosclerosis of [place] co ronary artery of [place] heart without angina pectoris 04/24/2017 Assessment & [...] losartan and hydrochlorothiazide due to moving from [place] and did not bring enough medication with [...] missing her losartan-hydrochlorothiazide due to moving from [place] not taking enough with her. I did [...] She brings in a lipid panel from [facility] dated 01/22/2023 where her cholesterol is 148, triglycerides 119, HDL 53, LDL 71, not LDL 95. She will continue her rosuvastatin 20 mg daily Assessment & Plan (04/24/2017 12:08 PM EST): Continue atorvastatin. Shortness of breath 04/24/2017 Assessment & Plan (05/27/2024 12:03 PM EST): She continues to have chronic shortness of breath. She did have an echocardiogram in [place] and states that this was fine we [...] encouraged her to get regular physical activity. Immunizations Immunization Administration Dates Next Due COVID-19 [...] Description 05/27/2025 11:30 AM EST Office Visit [facility] [address] [place] [address] [address] Floor, [address] [place] [address] Rosey Ch, [facility] [address] [facility], [address] [place] [id number] Health Maintenance Due Date Last Done Comments [...] COLONOSCOPY 08/31/1996 RSV VACCINE (1 - Risk 50-74 years 1-dose series) 08/31/2001 OSTEOPOROSIS SCREENING INITIAL (ONE-TIME) 08/31/2016 BLOOD PRESSURE 11/24/2024 05/27/2024 INFLUENZA VACCINE (#1) 2024 , 02/13/2019, 03/06/2018 COVID-19 VACCINE ( season) 2025 01/21/2021, 01/21/2021, 08/11/2020, Additional history exists Adult Td,Tdap Booster 02/20/2032 02/19/2022 HEPATITIS A [...] file Insurance [place] [id number] [facility] MEDEX SUPPLEMENT MEDICARE PART A & B [facility] MEDEX SUPPLEMENT MEDICARE PART A & B Member Subscriber Plan / Payer ( fective 2013-Present) Name:Arash Moralez Member ID:[id number] Relation to Subscriber:Self Name:Arash Moralez Subscriber ID:[id number] Payer ID:[id number] Group ID:Not on file Type:Medicare Address: [email or web address] [address] [place] [phone] [employer] SUPPLEMENT MEDICARE PART A & B [employer] SU[employer]MENT MEDICARE PART A & B [employer] SUPP[employer]MENT MEDICARE PART A & B [employer] SUPPLEMENT MEDICARE PART A & B [employer] SUPPLEMENT MEDICARE PART A & B [employer] SUPP[employer]MENT MEDICARE PART A & B [employer] SUPPLEMENT Care Teams Last Pattern Grader Relationship Specialty Start Date End Date Hedy Vital MD [address] [place] [address] PCP - General Internal Medicine 03/25/20 Tyler Tesfaye MD [address] [facility], [facility] [address] [place] [address] Historical LMR Provider 03/07/17 Additional Source Comments The information contained in this document represents components of the legal health record. It is not the complete legal health record.[facility]
--- OUTSIDE RECORDS SUMMARY | 2025-05-04 18:16 | XMS_ITS | Clinical Summary ---
Author Organization [facility] Prior to 10/17/[address] [place] [address] Care Team Providers Care Aircraft Avionics Technician Name Role Phone Hedy Vital MD Primary [...] age to complete this topic Care Teams Aircraft Avionics Technician Relationship Specialty Start Date End Date Hedy Vital MD PCP - General Internal Medicine 01/13/20
== END 2025-05-04 14:36 | disposition home or self-care (01) ==
LOC: HO.HPHYS 14:02
PROVIDERS: PCP Internal Medicine; Visit Provider Physical Medicine & Rehabilitation
DX: M50.30 Other cervical disc degeneration, unspecified cervical region (principal); M54.16 Radiculopathy, lumbar region; M54.12 Radiculopathy, cervical region
CPT/HCPCS: 99214; G2211

== ENCOUNTER → 2025-05-04 14:02 | Outpatient (BNVA) | payer MEDICARE, SELFPAY | PROVIDERS: PCP Internal Medicine; Visit Provider Physical Medicine & Rehabilitation | DX: M50.30 Other cervical disc degeneration, unspecified cervical region (principal); M54.16 Radiculopathy, lumbar region; M54.12 Radiculopathy, cervical region | CPT/HCPCS: 99212 ==